=== PATIENT | male | born 1945 | race Two or more races ===

== ENCOUNTER 2022-07-28 13:12 | Inpatient (IN) | payer OTHER ==
[~2022-07-28] VITALS: Ht 165.1 cm; Wt 97.5 kg
[2022-07-28] MEDS ORDERED: VASOTEC20 M1 PO (13:56)
[2022-07-28] MEDS ORDERED: NORVASC5 MG PO (13:56)
[2022-07-28] MEDS ORDERED: METFORMIN HCL1000 M2 PO (13:57)
[2022-07-28] MEDS ORDERED: NEURONTIN300 MG PO (13:57)
[2022-07-28] MEDS ORDERED: CRESTOR20 MG PO (13:57)
[2022-07-28] MEDS ORDERED: ZETIA10 MG PO (13:57)
[2022-07-28] MEDS ORDERED: CILOSTAZOL50 MG PO (13:58)
[2022-07-28] MEDS ORDERED: FARXIGA10 MG PO (13:58)
[2022-07-28] MEDS ORDERED: VITAMIN B122500 MC1 PO (13:59)
--- NOTE | 2022-07-28 13:59 | NUR ---
SE RECIBE PTE ALERTA ORIENTADO X3.PTE REFIERE ELIZA SIDO REFERIDO POR KLEIN DRA.LAIA SANTILLAN.PTE REFIERE HABERSE REALIZADO CT ABDOMINAL ESTELA EN LA MANANA. REFIERE A PTE CON DRA.MARLA CAMEJO.PTE REFIERE TENER DOLOR ABDOMINAL TREY.SE BEATRICE S/V Y SE UBICA.
--- NOTE | 2022-07-28 14:39 | NUR ---
PTE ALERTA,ESTABLE Y ORIENTADO.SE EDUCA SOBRE EL TRATAMIENTO QUE RECIBIRA EN EL HOSPITAL Y BRITNEY REFIERE ENTENDER
[2022-07-30] MEDS ORDERED: CIPRO500 MG PO (10:46)
[2022-07-30] MEDS ORDERED: METRONIDAZOLE500 MG PO (10:46)
== END 2022-07-30 13:15 | disposition home or self-care (01) | DRG 390 ==
LOC: ER 13:12 → SEC-K 17:00 → SURG 07-29 13:25 → O/R 07-29 13:30 → SURG 07-29 14:03
PROVIDERS: ADMIT Surgery; ATTEND Surgery
PROC: 0DDN8ZX Extraction of Sigmoid Colon, Via Natural or Artificial Opening Endoscopic, Diagnostic (ICD-10-PCS; principal; 2022-07-29)
DX: K56.699 Other intestinal obstruction unspecified as to partial versus complete obstruction (principal); K57.30 Diverticulosis of large intestine without perforation or abscess without bleeding; T18.4XXA Foreign body in colon, initial encounter; E11.9 Type 2 diabetes mellitus without complications; Z79.4 Long term (current) use of insulin; I10 Essential (primary) hypertension